=== PATIENT | male | born 1945 | race Caucasian/White ===

== ENCOUNTER 2018-04-14 14:00 | Emergency (ER) | payer OTHER ==
--- NOTE | 2018-04-14 15:20 | EDPHY ---
H & P Stated Complaint: tripped on stairs, facial trauma Time Seen by Provider: 04/14/18 15:12 HPI/ROS: CHIEF COMPLAINT: Facial contusions HISTORY OF PRESENT ILLNESS: The patient is a 72-year-old man who comes to the emergency department after a trip and fall last night about 20 hr ago. He fell into a step that is carpeted. He hit his right eyebrow and has a contusion to his right forehead. He has some gravitational of the bruising this morning giving him a black eye on the right. No vision changes or double vision. No hearing changes. No headache. No nausea vomiting. No loss of consciousness. No neck pain. He states that he does not think he has a concussion or in type of internal injury but just wanted to get checked out because he is leaving for [place] on Monday. He is not on blood thinners. Severity: Mild Modifying factors: None REVIEW OF SYSTEMS: Constitutional: denies: chills, fever, recent illness, recent injury EENTM: See HPI denies: blurred vision, double vision, nose congestion Respiratory: denies: cough, shortness of breath Cardiac: denies: chest pain, irregular heart rate, lightheadedness, palpitations Gastrointestinal/Abdominal: denies: abdominal pain, diarrhea, nausea, vomiting, blood streaked stools Genitourinary: denies: dysuria, frequency, hematuria, pain Musculoskeletal: denies: joint pain, muscle pain Skin: See HPI Neurological: denies: headache, numbness, paresthesia, tingling, dizziness, weakness Hematologic/Lymphatic: denies: blood clots, easy bleeding, easy bruising Immunologic/allergic: denies: HIV/AIDS, transplant 10 systems reviewed and negative except as noted EXAM: GENERAL: Well-appearing, well-nourished and in no acute distress. HEAD: Atraumatic, normocephalic. EYES: Pupils equal round and reactive to light, extraocular movements intact, sclera anicteric, conjunctiva are normal. ENT: Small hematoma with abrasions to right forehead, bruising around right eye. TMs normal, nares patent, oropharynx clear without exudates. Moist mucous membranes. NECK: Normal range of motion, supple without lymphadenopathy or JVD. LUNGS: Breath sounds clear to auscultation bilaterally and equal. No wheezes rales or rhonchi. HEART: Regular rate and rhythm without murmurs, rubs or gallops. ABDOMEN: Soft, nontender, normoactive bowel sounds. No guarding, no rebound. No masses appreciated. BACK: No CVA tenderness, no spinal tenderness, step-offs or deformities EXTREMITIES: Normal range of motion, no pitting or edema. No clubbing or cyanosis. NEUROLOGICAL: Cranial nerves II through XII grossly intact. Normal speech, normal gait. 5/5 strength, normal movement in all extremities, normal sensation , normal reflexes PSYCH: Normal mood, normal affect. SKIN: See above Source: Patient Exam Limitations: No limitations - Personal History Current Tetanus/Diphtheria Vaccine: Unsure Current Tetanus Diphtheria and Acellular Pertussis (TDAP): Unsure - Medical/Surgical History Hx Asthma: No Hx Chronic Respiratory Disease: No Hx Diabetes: No Hx Cardiac Disease: Yes Hx Renal Disease: No Hx Cirrhosis: No Hx Alcoholism: No Hx HIV/AIDS: No Hx Splenectomy or Spleen Trauma: No Other PMH: HTN, hyperlipidemia, TIA - Family History Significant Family History: No pertinent family hx - Social History Smoking Status: Never smoked Alcohol Use: Sober Drug Use: None Constitutional: Initial Vital Signs Temperature (C) 36.7 C 04/14/18 14:07 Heart Rate 58 L 04/14/18 14:07 Respiratory Rate 18 04/14/18 14:07 O2 Sat (%) 96 04/14/18 14:07 O2 Delivery Mode Room Air Allergies/Adverse Reactions: No Known Allergies Allergy (Unverified 04/14/18 14:06) Home Medications: Medication Instructions Recorded Crestor 04/14/18 amLODIPine BESYLATE 04/14/18 Medical Decision Making ED Course/Re-evaluation: 3:20 p.m. Patient is essentially asymptomatic other than bruising. No concussion type symptoms. We discussed risks and benefits of imaging versus not imaging and at this point agreed not to perform any imaging. We discussed symptoms to watch for and indications for returning. Differential Diagnosis: Partial list of the Differential diagnosis considered include but were not limited to; concussion, contusion, abrasion and although unlikely based on the history and physical exam, I also considered intracranial injury, cervical spine injury, syncope. I discussed these differential diagnoses and the plan with the patient as well as the usual and expected course. The patient understands that the diagnosis is provisional and that in medicine we are not always correct and that further workup is often warranted. Usual and customary warnings were given. All of the patient's questions were answered. The patient was instructed to return to the emergency department should the symptoms at all worsen or return, otherwise to followup with the physician as we discussed. Departure - Departure Disposition: Home, Routine, Self-Care Clinical Impression: Contusion of face Qualifiers: Encounter type: initial encounter Qualified Code(s): S00.83XA - Contusion of other part of head, initial encounter Condition: Fair Instructions: Facial Contusion (ED) Referrals: Junior Ray MD [Primary Care Provider] - 2-3 days, if not improved
[2018-04-14 15:31] VITALS: BP 125/78
== END 2018-04-14 15:31 | disposition home or self-care (01) ==
DX: S00.83XA Contusion of other part of head, initial encounter (principal); I10 Essential (primary) hypertension; E78.5 Hyperlipidemia, unspecified; W10.8XXA Fall (on) (from) other stairs and steps, initial encounter; Y92.019 Unspecified place in single-family (private) house as the place of occurrence of the external cause; Z86.73 Personal history of transient ischemic attack (TIA), and cerebral infarction without residual deficits